=== PATIENT | female | born 1995 | race Caucasian/White ===

== ENCOUNTER → 2020-05-12 | Outpatient (CLI) | payer MEDICAID ==
--- NOTE | 2020-05-12 13:19 | REP ---
Clinical: Early with vaginal bleeding. Technique: Transabdominal and transvaginal first trimester obstetrical ultrasound with color Doppler evaluation. Findings: Heterogeneous uterus is appreciated. Cervix measures 3 cm in length and appears closed. Intrauterine including gestational sac with pole noted. CRL of 3 mm corresponds to 5 weeks 6 days gestational age with estimated date of delivery 01/06/2021. However, no cardiac activity is identified during examination. Bilateral maternal ovaries are relatively normal with a 2.5 cm left corpus luteal cyst noted. Small amount of pelvic free fluid is nonspecific. Impression: 1. Early intrauterine measuring at 5 weeks 6 days gestational age. No cardiac activity is currently identifiable. Differential diagnosis includes early . Follow-up serial HCG levels and close clinical observation may be warranted. Electronically Signed by Eleazar Middleton MD 05/12/2020 01:11 P
== END ==
LOC: M WHC 08:44
PROVIDERS: ATTEND Obstetrics & Gynecology Obstetrics
DX: O46.91 Antepartum hemorrhage, unspecified, first trimester (principal); Z3A.01 Less than 8 weeks gestation of pregnancy